=== PATIENT | male | born 1940 | race Caucasian/White ===

== ENCOUNTER → 2023-03-08 | Day surgery (SDC) | payer MEDICARE ==
[2023-03-01 11:31] LABS: BASOPHILS # (AUTO) 0.1 X10'3 (0-0.2); EOSINOPHILS # (AUTO) 0.5 X10'3 (0-0.9); EOSINOPHILS % (AUTO) 7.1 % (0-6); LYMPHOCYTES # (AUTO) 1.1 X10'3 (1.1-4.8); LYMPHOCYTES % (AUTO) 14.7 % (21-51); MEAN CORPUSCULAR HEMOGLOBIN 30.9 PG (27.0-31.0); MEAN CORPUSCULAR HGB CONC 33.5 g/dL (33.0-36.5); MEAN CORPUSCULAR VOLUME 92.1 FL (78-98); MEAN PLATELET VOLUME 7.8 FL (7.4-10.4); MONOCYTES # (AUTO) 0.6 X10'3 (0-0.9); MONOCYTES % (AUTO) 8.5 % (2-12); NEUTROPHILS # (AUTO) 5.2 X10'3 (1.8-7.7); NEUTROPHILS % (AUTO) 68.7 % (42-75); PRE OP HEMATOCRIT 42.9 % (42.0-52.0); PRE OP HEMOGLOBIN 14.4 g/dL (14.0-17.9); PRE OP PLATELET COUNT 209 X10'3 (140-440); PRE OP WHITE BLOOD COUNT 7.5 10'3 (4.8-10.8); RED BLOOD COUNT 4.66 X10'6 (4.70-6.10); RED CELL DISTRIBUTION WIDTH 13.7 % (11.5-14.5)
[2023-03-01 11:31] LABS: BILIRUBIN,URINE NEGATIVE (Neg); CLARITY,URINE CLEAR (Clear); COLOR,URINE YELLOW (Yellow); GLUCOSE, URINE NEGATIVE (Neg); KETONES,URINE NEGATIVE (Neg); LEUKOCYTE ESTERASE ,URINE NEGATIVE (Neg); NITRITES, URINE NEGATIVE (Neg); OCCULT BLOOD,URINE NEGATIVE (Neg); PROTEIN,URINE NEGATIVE (Neg); UROBILINOGEN,URINE 0.2 E.U/dL (0.2-1.0)
[2023-03-01 11:35] LABS: UA COLLECTION TYPE NON-SPECIFIED
[2023-03-01 11:44] LABS: ALBUMIN 3.9 G/DL (3.4-5.0); ALBUMIN/GLOBULIN RATIO 1.1 (1.1-1.5); ALKALINE PHOSPHATASE 82 IU/L (46-116); BLOOD UREA NITROGEN 19 MG/DL (7-18); BUN/CREATININE RATIO 20.7 (10.0-20.0); CALCIUM 8.8 MG/DL (8.5-10.1); CHLORIDE 103 MMOL/L (99-107); CREATININE 0.92 MG/DL (0.60-1.10); PRE OP ALT 19 U/L (30-65); PRE OP ANION GAP 8 (8-16); PRE OP AST 17 U/L (10-37); PRE OP BILIRUB, TOTAL 0.5 MG/DL (0.0-1.0); PRE OP GLUCOSE 110 MG/DL (70-104); PRE OP SODIUM 138 MMOL/L (135-145); TOTAL CARBON DIOXIDE 27.4 MMOL/L (24-32); TOTAL PROTEIN 7.6 G/DL (6.4-8.2); eGFR 78 ML/MIN
[2023-03-08] VITALS (18 sets, daily range): BP systolic 103–126; BP diastolic 59–74; PULSE 60–83; RESP 13–24; TEMP 98.1; O2SAT 92–99
[~2023-03-08] VITALS: Ht 177.8 cm; Wt 84.8 kg
[~2023-03-08] MED LIST: ATOR20TA66 PO; ATROPINE SULFATE 0.4 MG/ML injection (OR only) ONE; BUPIVAcaine 2.5mg/ml inj 50ml vial (contains preservative) IJ ONE; BUPIVAcaine 2.5mg/ml inj 50ml vial (contains preservative) ONE; GABA600T13 PO; LIDOcaine 2% (20mg/ml) 5ml vial ONE; MELO-102 PO; VERA240T92 PO; acetaminophen 1,000mg/100ml IV 100 ML IV ONE; cefazolin 2gm/D5W 100mL 100 ML IV ONE; desflurane 240ml liquid inh. IH ONE; dexamethasone sod phosphate 4mg/ml inj. ONE; ePHEDrine 50MG/ML INJ. ONE; famotidine 20mg tablet PO ONE; fentaNYL/PF 50MCG/1 ML 2ML syringe IV PRN; fentaNYL/PF 50MCG/1 ML 2ML syringe ONE; glycopyrrolate 0.2mg/ml inj ONE; hydrALAZINE 20mg/ml inj. IV PRN; labetalol 20mg/4ml (5mg/ml) syringe IV PRN; midazolam 1 mg/ML 2ml injection ONE; morphine 2 MG/ML inj. syringe IV PRN; morphine 4 MG/ML inj SYRINge IV PRN; ondansetron/PF 4mg/2ml inj IV PRN; ondansetron/PF 4mg/2ml inj ONE; propofol inj 20 ML IV ONE; ringers solution, lacted 1,000 ML IV SCH; rocuronium 10mg/ml inj IV ONE; sugammadex 200mg/2ml injection IV ONE; traMADol 50MG tablet PO ONE
== END | disposition home or self-care (01) ==
LOC: PAS 05:28
PROVIDERS: ATTEND Surgery
DX: K40.90 Unilateral inguinal hernia, without obstruction or gangrene, not specified as recurrent (principal); I10 Essential (primary) hypertension; E11.9 Type 2 diabetes mellitus without complications; E78.00 Pure hypercholesterolemia, unspecified; G62.9 Polyneuropathy, unspecified; I20.9 Angina pectoris, unspecified; I25.2 Old myocardial infarction; M19.90 Unspecified osteoarthritis, unspecified site; Z79.899 Other long term (current) drug therapy; Z98.890 Other specified postprocedural states; Z80.9 Family history of malignant neoplasm, unspecified; Z82.49 Family history of ischemic heart disease and other diseases of the circulatory system
CPT/HCPCS: 36415; 49505; 80053; 81003; 82948; 85025; 93005; C1781; J0131; J0690; J1100; J2250; J2405; J2704; J3010; J3490; J7030; J7120; Z7506; Z7508; Z7512; A4215; A4618; C1758

== ENCOUNTER 2024-08-29 07:09 | Day surgery (SDC) | payer MEDICARE ==
[~2024-08-29] VITALS: Ht 177.8 cm; Wt 77.3 kg
[2024-08-29] VITALS (8 sets, daily range): BP systolic 118–136; BP diastolic 58–76; PULSE 105–111; RESP 13–21; TEMP 99; O2SAT 95–96
[~2024-08-29 07:09] MED LIST changes: +ASPI-1265 PO; +ASPI-611 PO; -ATROPINE SULFATE 0.4 MG/ML injection (OR only) ONE; -BUPIVAcaine 2.5mg/ml inj 50ml vial (contains preservative) IJ ONE; -BUPIVAcaine 2.5mg/ml inj 50ml vial (contains preservative) ONE; +FURO-149 PO; +GABA300C PO; -GABA600T13 PO; +Heparin SUBCUT; -LIDOcaine 2% (20mg/ml) 5ml vial ONE; +MONT-47 PO; +PANT-47 PO; +POTA-207 PO; +SENN-360 PO; +VERA120T86 PO; -VERA240T92 PO; -acetaminophen 1,000mg/100ml IV 100 ML IV ONE; -cefazolin 2gm/D5W 100mL 100 ML IV ONE; -desflurane 240ml liquid inh. IH ONE; -dexamethasone sod phosphate 4mg/ml inj. ONE; -ePHEDrine 50MG/ML INJ. ONE; -famotidine 20mg tablet PO ONE; -fentaNYL/PF 50MCG/1 ML 2ML syringe IV PRN; -fentaNYL/PF 50MCG/1 ML 2ML syringe ONE; -glycopyrrolate 0.2mg/ml inj ONE; -hydrALAZINE 20mg/ml inj. IV PRN; -labetalol 20mg/4ml (5mg/ml) syringe IV PRN; -midazolam 1 mg/ML 2ml injection ONE; -morphine 2 MG/ML inj. syringe IV PRN; -morphine 4 MG/ML inj SYRINge IV PRN; -ondansetron/PF 4mg/2ml inj IV PRN; -ondansetron/PF 4mg/2ml inj ONE; -propofol inj 20 ML IV ONE; -ringers solution, lacted 1,000 ML IV SCH; -rocuronium 10mg/ml inj IV ONE; -sugammadex 200mg/2ml injection IV ONE; -traMADol 50MG tablet PO ONE
--- NOTE | 2024-08-29 09:22 | PROCEDURE NOTE CC ---
Procedure Note CC Providers to CC ~ Procedure Name: Thoracentesis Description: Indication: Pleural Effusion Site: Left Consent: Pt Time-out: Done Anesthesia: Local Technique: US guided Fluid: 600ml blood-tinged Complication: None EBL: 0ml Sepsis Screening Reassessment Date: Aug 29, 2024 ANGIE NDIAYE MD Aug 29, 2024 09:22
--- NOTE | 2024-08-29 14:42 | RADIOLOGY REPORT ---
PROCEDURE: ULTRASOUND GUIDED THORACENTESIS USING TEMPORARY CATHETER HISTORY: SYMPTOMATIC LEFT PLEURAL EFFUSION PERFORMING DOCTOR: Dr. Dalton DOCUMENTATION: Informed consent was obtained and a procedural time out was performed. PROCEDURE: The risks and benefits of the procedure including bleeding, infection and pneumothorax we re explained to the patient and written informed consent obtained. Optimal site for puncture long the LEFT posterior chest wall was determined using real-time ultrasoun d and the region sterilized. Local anesthesia was instilled. A 5 [place] catheter was then advanced into the pleural space and 600 ML of fluid was removed. The patient tolerated the procedure well. IMPRESSION: Ultrasound guided left thoracentesis.
== END 2024-08-29 09:55 | disposition home or self-care (01) ==
LOC: SSTAY O 07:09
PROVIDERS: ATTEND Thoracic Surgery (Cardiothoracic Vascular Surgery)
DX: J90 Pleural effusion, not elsewhere classified (principal)
CPT/HCPCS: 32555; A4615; C1729; A6258; A6449